=== PATIENT | female | born 1945 | race Caucasian/White ===

== ENCOUNTER 2018-02-10 12:19 | Outpatient (CLI) | payer OTHER | END 2018-02-10 12:32 | disposition home or self-care (01) | LOC: SONOGRAMA 12:19 | DX: E04.1 Nontoxic single thyroid nodule (principal) ==

== ENCOUNTER 2018-03-06 10:05 | Outpatient (CLI) | payer OTHER | END 2018-03-06 10:07 | disposition home or self-care (01) | LOC: SONOGRAMA 10:05 | DX: C73 Malignant neoplasm of thyroid gland (principal) ==

== ENCOUNTER 2020-08-25 07:46 | Outpatient (CLI) | payer OTHER | END 2020-08-25 07:53 | disposition home or self-care (01) | LOC: SONOGRAMA 07:46 | PROVIDERS: ATTEND Pathology Anatomic Pathology & Clinical Pathology | DX: D34 Benign neoplasm of thyroid gland (principal); E04.2 Nontoxic multinodular goiter; E04.8 Other specified nontoxic goiter; E07.89 Other specified disorders of thyroid ==